=== PATIENT | male | born 1965 | race Caucasian/White ===

== ENCOUNTER 2017-05-27 09:39 | Day surgery (SDC) | payer OTHER ==
[2017-05-24 17:09] VITALS: BMI 28.7
[2017-05-27] MEDS ORDERED: BUPIVACAINE HCL/EPINEPHRINE/PF 30 ML VIAL IJ ONE (11:28)
[2017-05-27] MEDS ORDERED: MIDAZOLAM HCL 2 MG/2 ML SINGLE DOSE VIAL ONE (12:15)
[2017-05-27] MEDS ORDERED: PROPOFOL 20 ML ONE ×2 (12:21)
[2017-05-27] MEDS ORDERED: LIDOCAINE HCL 2% 100 MG/5 ML DISP.SYRIN ONE (12:24)
[2017-05-27] MEDS ORDERED: ceFAZolin SODIUM 1 GM VIAL ONE (12:29)
[2017-05-27] MEDS ORDERED: ONDANSETRON 4 MG/2 ML VIAL ONE (12:33)
[2017-05-27] MEDS ORDERED: DEXAMETHASONE SOD PHOSPHATE 4 MG/1 ML VIAL ONE (12:33)
[2017-05-27] MEDS ORDERED: KETOROLAC TROMETHAMINE 30 MG/1 ML VIAL ONE (12:33)
--- NOTE | 2017-05-27 13:12 | DS ---
Physical Examination Vital Signs: Vital Signs Temperature 97 F L 05/27/17 09:59 Pulse Rate 97 H 05/27/17 09:59 Respiratory Rate 18 05/27/17 09:59 Blood Pressure 136/86 05/27/17 09:59 O2 Sat by Pulse Oximetry (%) 98 05/27/17 09:59 Discharge Summary Reason For Visit: MEDIAL MENISCAL TEAR, LEFT KNEE Condition: Good - Instructions Diet, Activity, Other Instructions: Post Operative Instructions: Knee Arthroscopy Dr Keith Roberts 1. Pain following an arthroscopy is variable. Some patients will have more pain than others. You have been provided with a prescription for medication that contains a narcotic. You are not allowed to drive while on this medication. You should NOT take Tylenol (Acetaminophen) when taking the pain medication ( it will result in an overdose). Feel free to take medications such as Ibuprofen or Naprosyn in addition to the pain medicine if you do not have any problems with the NSAID class of medications. 2. You are allowed to remove the bandages and shower in 24 hours. You are not allowed to bathe or go swimming until the sutures are removed. Put band-aids on the sutures after your shower and do not put any creams or lotions over the incisions. 3. You are allowed to put all your weight on the leg and bend your knee. 4. Apply ice to the knee for 15 min every hour or so. You may continue this for as many days as you like. 5. Please call the office to schedule a visit to have your sutures removed. 6. If for any reason you believe you may have an infection or are concerned, please feel free to call me. I can be reached through our office number 24 hours a day. 7. Please call our office with any questions; we will review the surgical findings during your post operative visit. Disposition: HOME - Home Medications Comprehensive Discharge Medication List: Ambulatory Orders Simvastatin [Zocor -] 40 mg PO HS 04/29/14 [place]-3/Dha/Epa/Fish Oil [Fish Oil 500 mg Softgel] 1 each PO DAILY 05/24/17 Ibuprofen 800 mg PO Q8H PRN #60 tablet 05/27/17
--- NOTE | 2017-05-27 13:12 | OP ---
Operative Note - Note: Operative Date: 05/27/17 Pre-Operative Diagnosis: LEft knee MMT Operation: LKA, partial menisectomy Post-Operative Diagnosis: Same as Pre-op Anesthesia: Local Operative Report Dictated: Yes
[2017-05-27 14:01] VITALS: TEMP 98
[2017-05-27 14:32] VITALS: BP 121/65; PULSE 84
--- NOTE | 2017-06-02 15:01 | PATH ---
Surgical Pathology Report Patient Name: HYACINTH AMAYA [facility]. Rec. #: [id number] /Age/Gender: 1965 (Age: 51) / M Account: [id number] Location: [facility] Taken: 05/27/2017 Received: 05/27/2017 Reported: 06/02/2017 Physicians: Keith Roberts M.D. Specimen(s) Received LEFT KNEE SHAVINGS Clinical History Medial meniscal tear left knee Final Diagnosis KNEE, LEFT, ARTHROSCOPIC SHAVINGS: CARTILAGE AND FIBROSYNOVIAL TISSUE SHOWING NODULAR AGGREGATES OF CALCIFIC MATERIAL WITH POLARIZABLE WEAKLY BIREFRINGENT CRYSTALS, CONSISTENT WITH CHONDROCALCINOSIS (PSEUDOGOUT). Electronically Signed Sumi Evans M.D. Gross Description Received in formalin, labeled "left knee shavings," is a 2.5 x 1.6 x 0.3 cm. aggregate of hoff-yellow soft tissue fragments. A business representative portion is submitted in one cassette. 05/30/2017 [facility]05/30/2017
== END 2017-05-27 14:35 | disposition home or self-care (01) ==
LOC: FASU 09:39
PROVIDERS: ATTEND Orthopaedic Surgery
PROC: 0SBD4ZZ Excision of Left Knee Joint, Percutaneous Endoscopic Approach (ICD-10-PCS; principal; 2017-05-27 12:42)
DX: S83.242A Other tear of medial meniscus, current injury, left knee, initial encounter (principal); X58.XXXA Exposure to other specified factors, initial encounter; Y93.9 Activity, unspecified; Y92.9 Unspecified place or not applicable
CPT/HCPCS: 88304-TC